=== PATIENT | male | born 1990 | race Caucasian/White ===

== ENCOUNTER → 2021-07-24 18:21 | Outpatient (CLI) | payer OTHER, SELFPAY | PROVIDERS: Visit Provider Nurse Practitioner Family | DX: J02.9 Acute pharyngitis, unspecified (principal) | CPT/HCPCS: 87070; 87077; 87147 ==

== ENCOUNTER 2022-05-17 02:25 | Emergency (ER) | payer OTHER, SELFPAY ==
[2022-05-17 02:36] VITALS: BP 136/86; PULSE 70; RESP 16; TEMP 36.5; O2SAT 100; BMI 31.9
--- NOTE | 2022-05-17 02:40 | ED_ITS ---
HPI - General Adult General Chief complaint: Dental/Oral Stated complaint: right side toothache pain Time Seen by Provider: 05/17/22 02:28 Source: patient Mode of arrival: Ambulatory Limitations: no limitations History of Present Illness HPI narrative: 32-year-old male who is here for evaluation of right-sided lower jaw discomfort. Symptoms started just over 24 hours ago. He is yet to have this evaluated. No problems swallowing. He is not tried anything for the symptoms prior to arrival. Related Data Previous Rx's Medication Instructions Recorded penicillin V potassium 500 mg 500 mg PO QID 7 days #28 tabs 05/17/22 tablet Allergies Allergy/AdvReac Type Severity Reaction Status Date / Time sulfamethoxazole Allergy Unknown Verified 05/17/22 02:46 [From ] trimethoprim [From ] Allergy Unknown Verified 05/17/22 02:46 Review of Systems ENT Ears, Nose, Mouth, and Throat: Reports system reviewed and no additional complaints, except as documented Integumentary/Breasts Skin/Breast: Reports system reviewed and no additional complaints, except as documented Exam Initial Vital Signs Initial Vital Signs: Vital Signs Temperature 97.7 F 05/17/22 02:36 Pulse Rate 70 05/17/22 02:36 Respiratory Rate 16 05/17/22 02:36 Blood Pressure 136/86 05/17/22 02:36 Pulse Oximetry 100 05/17/22 02:36 Oxygen Delivery Method 05/17/22 02:36 HENMT Face and sinus: no ecchymosis, no erythema and edema on the right mandible Mouth: oral mucosae normal, tongue normal, moist mucous membranes and lip abnormal Teeth and gingiva: no caries and other (No drainable abscess seen.) Skin General: no rashes or lesions noted Course Orders Ordered: Discontinued Medications Penicillin V Potassium (Penicillin Vk 250 Mg Tablet) 500 mg PO NOW ONE Stop: 05/17/22 02:42 Last Admin: 05/17/22 02:47 Dose: 500 mg Documented By: ARCHIE Tramadol HCl (Tramadol 50 Mg Prepack) 1 bottle MISC SEEINSTR ONE Stop: 05/17/22 02:42 Last Admin: 05/17/22 02:47 Dose: 1 bottle Documented By: ARCHIE Tramadol HCl (Tramadol 50 Mg Tablet) 50 mg PO NOW ONE Stop: 05/17/22 02:50 Last Admin: 05/17/22 02:51 Dose: 50 mg Documented By: ARCHIE Vital Signs Vital signs: Vital Signs - 8 hr 05/17/22 02:36 Temperature 97.7 F Pulse Rate 70 Respiratory Rate 16 Blood Pressure 136/86 Pulse Oximetry 100 Oxygen Delivery Method Room Air Medical Decision Making MDM Narrative Medical decision making narrative: Patient does have swelling to the right lower mandibular region. There is no external signs of any cellulitis no drainable abscess. Patient does not have any drainable abscess seen intraorally as well. There is no swelling under the tongue. No respiratory distress. I do suspect that this is a dental infection. Patient was given a dose of antibiotics here in the emergency department as well as pain medication was sent home with a prescription for each as well. He was informed that he needed to follow-up with a dentist for definitive treatment. He was given return precautions. He expressed understanding and agreement. Discharge Plan Departure Patient Disposition: Home Clinical Impression: Dental abscess Instructions: Tooth Abscess Activity Restrictions/Additional Instructions: A prescription for antibiotics was sent to [facility]. I recommend that you take it as directed. You will need further evaluation by a dentist. You can take Tylenol and ibuprofen for discomfort as well. Return to the emergency department for new symptoms. Prescriptions: New penicillin V potassium 500 mg tablet 500 mg PO QID 7 Days Qty: 28 0RF Stand Alone Forms: Patient Portal/API
[2022-05-17] MEDS: TRAMADOL 50 MG PREPACK 1 BOTTLE MISC (02:47)
[2022-05-17] MEDS: PENICILLIN VK 250 MG TABLET 500 MG PO (02:47)
[2022-05-17] MEDS: TRAMADOL 50 MG TABLET PO (02:51)
== END 2022-05-17 02:53 | disposition home or self-care (01) ==
PROVIDERS: Emergency Provider Emergency Medicine
DX: K04.7 Periapical abscess without sinus (principal)
CPT/HCPCS: 99283

== ENCOUNTER → 2023-02-20 10:00 | Outpatient (CLI) | payer OTHER, SELFPAY | PROVIDERS: Visit Provider Nurse Practitioner Family | DX: J02.9 Acute pharyngitis, unspecified (principal) | CPT/HCPCS: 87070 ==

== ENCOUNTER → 2024-01-25 08:57 | Outpatient (CLI) | payer OTHER, SELFPAY ==
[2024-01-25 09:49] LABS: Influenza A - CEPHEID Flu A NEGATIVE (NEGATIVE); Influenza B - CEPHEID Flu B NEGATIVE (NEGATIVE); Respiratory Syncytial Virus Negative (Negative)
[2024-01-25 09:54] LABS: COVID-19 CEPHEID 4-PLEX PCR Negative (Negative)
== END ==
PROVIDERS: Visit Provider Physician Assistant Medical
DX: J02.9 Acute pharyngitis, unspecified (principal); R50.9 Fever, unspecified
CPT/HCPCS: 0241U; 87070